=== PATIENT | male | born 1995 | race Hispanic/Latino ===

== ENCOUNTER 2021-01-26 10:59 | Emergency (ER) | payer SELFPAY ==
[~2021-01-26] VITALS: Ht 172.7 cm; Wt 68.0 kg
[2021-01-26] MEDS ORDERED: SODIUM CHLORIDE 0.9% 1000ML 1,000 ML ONE (11:47)
[2021-01-26] MEDS ORDERED: ONDANSETRON HCL INJ 2MG/ML 2ML 2 MG/ML VIAL ONE (11:47)
[2021-01-26] MEDS: SODIUM CHLORIDE 0.9% 1000ML 1,000 ML IV STA (12:15)
[2021-01-26] MEDS: ONDANSETRON HCL INJ 2MG/ML 2ML 2 MG/ML VIAL IV STA (12:15)
[2021-01-26] MEDS ORDERED: FLAGYL500 MG PO (13:02)
[2021-01-26] MEDS ORDERED: CIPRO500 MG PO (13:02)
[2021-01-26] MEDS ORDERED: DICYCLOMINE HCL20 MG PO (13:02)
[2021-01-26] MEDS ORDERED: ONDANSETRON ODT4 MG PO (13:02)
[2021-01-26] MEDS: PROMETHAZINE 12.5MG/ NACL 0.9% 12.5 MG/50 ML BAG IV ONE (13:11)
[2021-01-26] MEDS: MORPHINE SULFATE INJ 4 MG/ML INJ 1ML IV ONE (13:13)
[2021-01-26] MEDS ORDERED: PROMETHAZINE HCL (IM) 25 MG/ML VIAL IM ONE (13:26)
[2021-01-26] MEDS ORDERED: SODIUM CHLORIDE 0.9% 100 ML ONE (13:26)
== END 2021-01-26 14:05 | disposition home or self-care (01) ==
LOC: FSED 11:36
DX: K52.9 Noninfective gastroenteritis and colitis, unspecified (principal)
CPT/HCPCS: 74176; 80053; 81003; 85025; 99283; J2405; J2550; J7030; J7050